=== PATIENT | female | born 1935 | race African-American/Black ===

== ENCOUNTER 2018-08-04 11:06 | Inpatient (IN) | payer OTHER ==
--- NOTE | 2018-08-04 11:44 | PDOC ---
History of Present Illness - General Chief Complaint: G Tube Problem Stated Complaint: FAILURE TO THRIVE Time Seen by Provider: 08/04/18 11:27 History Source: [facility] Exam Limitations: Dementia - History of Present Illness Initial Comments: 08/04/18 11:43 Limited history due to patient's dementia. Pt is an 82yo f with left BKA, CVA with R sided deficits, alzheimer's, DM BIBA from [facility] for G-tube placement. Pt has not been eating food and is here to get G-tube placed. Not taking blood thinners. DNR/DNI PCP: Dina PMH: see hpi PSH: Meds: see med rec Allergies: nkda Past History - Past Medical History Allergies/Adverse Reactions: Allergies Allergy/AdvReac Type Severity Reaction Status Date / Time No Known Allergies Allergy Verified 02/15/15 15:10 Home Medications: Ambulatory Orders Acetaminophen [Tylenol] 650 mg PO QID PRN 10/29/14 Amlodipine Besylate [Norvasc -] 10 mg PO DAILY 10/29/14 Carvedilol 25 mg PO Q12H 10/29/14 Hydralazine HCl 75 mg PO BID 10/29/14 Latanoprost 0.005% Eye Drops [Xalatan 0.005% Eye Drops -] 1 drop OU HS 10/29/14 Timolol 0.5% [Timoptic 0.5%] 1 drop OD DAILY 10/29/14 Insulin Sliding Scale [Novolog Flexpen Sliding Scale -] 0 units SQ ASDIR Brinzolamide [Azopt] 1 drop OP DAILY 08/04/18 Calcium Carbonate/Vitamin D3 [Oyster Shell 500-Vit D3 200 Tb] 1 each PO DAILY Ciclopirox 6.6 ml TP DAILY 08/04/18 Ferrous Sulfate 325 mg PO BID 08/04/18 Lactulose 30 ml PO DAILY PRN 08/04/18 Mirtazapine 7.5 mg PO HS 08/04/18 Ranitidine HCl [Zantac] 150 mg PO DAILY 08/04/18 Sennosides [Senna] 2 tab PO HS 08/04/18 Anemia: No Asthma: Yes Cancer: No Cardiac Disorders: Yes (BLOCKAGES) CVA: No COPD: No CHF: No Dementia: No Diabetes: Yes GI Disorders: No Disorders: No HTN: Yes Hypercholesterolemia: No Liver Disease: No Seizures: No Thyroid Disease: No - Surgical History Abdominal Surgery: No Appendectomy: No Cardiac Surgery: No Cholecystectomy: No Lung Surgery: No Neurologic Surgery: No Orthopedic Surgery: No - Immunization History Immunization Up to Date: Yes - Suicide/Smoking/Psychosocial Hx Smoking Status: No Smoking History: Never smoked Have you smoked in the past 12 months: No Number of Cigarettes Smoked Daily: 0 Hx Alcohol Use: No Drug/Substance Use Hx: No Substance Use Type: None Hx Substance Use Treatment: No Review of Systems - Review of Systems Able to Perform ROS?: No *Physical Exam - Physical Exam General Appearance: Yes: Nourished, Appropriately Dressed. No: Apparent Distress HEENT: positive: EOMI, MURALI (reduced in L eye). negative: Scleral Icterus (R), Scleral Icterus (L) Neck: positive: Trachea midline, Supple. negative: Carotid bruit, Lymphadenopathy (R), Lymphadenopathy (L) Respiratory/Chest: positive: Lungs Clear, Normal Breath Sounds. negative: Crackles, Rales, Rhonchi, Stridor Cardiovascular: positive: Regular Rhythm, S1, S2, Irregular. negative: Edema, JVD, Murmur Vascular Pulses: Carotid (R): 2+, Carotid (L): 2+, Dorsalis-Pedis (R): 1+ Gastrointestinal/Abdominal: positive: Normal Bowel Sounds, Soft. negative: Distended, Guarding, Rebound, Tenderness Musculoskeletal: positive: Other (L BKA. Contracted on R side. ). negative: CVA Tenderness Extremity: positive: Normal Capillary Refill, Pelvis Stable Integumentary: positive: Normal Color, Dry, Warm Neurologic: positive: debt recovery officer II-XII NML intact, Alert, Normal Mood/Affect, Normal Response. negative: Fully Oriented (oriented to self), Motor Strength 5/5 ( strength 4/5 in L arm. R sided deficits from CVA. ) ED Treatment Course - LABORATORY CBC & Chemistry Diagram: 08/04/18 13:20 08/04/18 12:43 Medical Decision Making - Medical Decision Making 08/04/18 18:26 Pt is an 82yo f with left BKA, CVA with R sided deficits, alzheimer's, DM BIBA from [facility] for G-tube placement. Pt has not been eating food and is here to get G-tube placed. Not taking blood thinners. DNR/DNI Will order labs and admit pt. Pt admitted under Dr. Jasmine No doctor available to provide consent from IR. I had to obtain consent and place NG tube. *DC/Admit/Observation/Transfer Diagnosis at time of Disposition: Failure to thrive Qualifiers: Failure to thrive age range: in adult Qualified Code(s): R62.7 - Adult failure to thrive - Discharge Dispostion Condition at time of disposition: Stable Decision to Admit order: Yes - Referrals - Patient Instructions - Post Discharge Activity
[2018-08-04] MEDS ORDERED: ACETAMINOPHEN 650 MG SUPP.RECT PR PRN (13:08)
[2018-08-04] MEDS ORDERED: METOPROLOL TARTRATE 5 MG/5 ML VIAL IVPUSH PRN (13:08)
--- NOTE | 2018-08-04 13:10 | PDOC ---
Attending Attestation - Resident Resident Name: KarlyLisseth - ED Attending Attestation I have performed the following: I have examined & evaluated the patient, The case was reviewed & discussed with the resident, I agree w/resident's findings & plan, Exceptions are as noted - HPI HPI: 08/04/18 13:32 The patient is a 82 year old female, with a past medical history of anemia, PVD , DM, asthma, HLD, GERD, dementia, CVA, chronic ischemic heart disease, who presents to the emergency department from [facility] for failure to thrive. Per correction, the patient has not been taking PO and was sent to hospital for G-tube. No fevers or vomiting noted at [facility]. No abdominal pain, no CP/SOB. Allergies: NKDA Past surgical history: LLE amputation (below the knee). Social history: Nonsmoker. Denies EtOH use and recreational drug use. Primary Care Physician: Dr. Jasmine - Physicial Exam PE: 08/04/18 13:47 "GENERAL: Awake, alert, in no acute distress. HEAD: No signs of trauma EYES: PERRLA, EOMI, sclera anicteric, conjunctiva clear ENT: Auricles normal inspection, hearing grossly normal, nares patent, oropharynx clear without exudates. Moist mucosa NECK: Nontender, no stepoffs, Normal ROM, supple, no lymphadenopathy, JVD, or masses LUNGS: Breath sounds equal, clear to auscultation bilaterally. No wheezes, and no crackles HEART: Regular rate and rhythm, normal S1 and S2, no murmurs, rubs or gallops ABDOMEN: Soft, nontender, normoactive bowel sounds. No guarding, no rebound. No masses EXTREMITIES: Normal range of motion, no edema. No clubbing or cyanosis. No cords, erythema, or tenderness NEUROLOGICAL: Cranial nerves II through XII intact. 5/5 strength and sensation in all extremities SKIN: Warm, Dry, normal turgor, no rashes or lesions noted." - Medical Decision Making 08/04/18 13:47 82 F with failure to thrive and poor PO, sent in for G tube placement. Low suspicion for acute process. Pt otherwise well appearing on exam, stable vitals , no fever. - Labs - Admit <Ou,Sreekanth - Last Filed: 08/04/18 13:04> Attestations - Attestations 08/04/18 14:56 Documentation prepared by Joe Nelson, acting as medical and scientific illustrator for Sreekanth Blake MD. <Joe Nelson - Last Filed: 08/04/18 14:56>
[2018-08-04] MEDS ORDERED: SODIUM CHLORIDE 1,000 ML IV SCH (13:15)
[2018-08-04 13:39] LABS: BASO % 1.4 % (0-2.0); EOS % 2.1 % (0-4.5); HEMATOCRIT 31.7 % (32.4-45.2); HEMOGLOBIN 10.3 GM/dL (10.7-15.3); LYMPH % 41.6 % (8-40); MCHC 32.6 g/dl (32.0-36.0); MEAN CELL VOLUME 82.8 fl (80-96); MEAN PLT VOLUME 9.9 fl (7.5-11.1); MONO % 6.6 % (3.8-10.2); NEUT % 48.3 % (42.8-82.8); PLATELET COUNT 289 K/MM3 (134-434); RBC 3.83 M/mm3 (3.60-5.2); RDW 15.2 % (11.6-15.6); WHITE BLOOD COUNT 5.2 K/mm3 (4.0-10.0)
[2018-08-04 14:00] LABS: INR 1.12 (0.83-1.09); PROTHROMBIN TIME (PATIENT) 13.2 SEC (9.7-13.0)
[2018-08-04 14:12] LABS: ALBUMIN 2.7 g/dl (3.4-5.0); ALK PHOS 84 U/L (45-117); ANION GAP 11 MMOL/L (8-16); BILIRUBIN,TOTAL 0.4 mg/dL (0.2-1); BLOOD UREA NITROGEN 6 mg/dL (7-18); CALCIUM 8.3 mg/dL (8.5-10.1); CHLORIDE 107 mmol/L (98-107); CO2 27 mmol/L (21-32); CREATININE 0.5 mg/dL (0.55-1.3); GLUCOSE,RANDOM 93 mg/dL (74-106); MAGNESIUM 1.5 mg/dL (1.8-2.4); PHOSPHOROUS 2.1 mg/dL (2.5-4.9); POTASSIUM 3.2 mmol/L (3.5-5.1); SGOT/AST 14 U/L (15-37); SGPT/ALT 16 U/L (13-61); SODIUM 145 mmol/L (136-145); TOT PROT 6.2 g/dl (6.4-8.2)
[2018-08-04] MEDS: DEXTROSE 5%-NORMAL SALINE 1,000 ML IV SCH (14:22)
[2018-08-05] MEDS ORDERED: KCL 10 MEQ IVPB 10 MEQ/100 ML INFUS.BAG IVPB SCH (00:15)
[2018-08-05] MEDS: LATANOPROST 0.005% OPHTH SOLN 2.5ML BOTTLE OD SCH (01:37)
[2018-08-05] MEDS: TIMOLOL 0.5% OPHTHALMIC SOL 5 ML BOTTLE OD SCH ×2 (01:37→14:48)
[2018-08-05 08:43] LABS: HEMATOCRIT 33.1 % (32.4-45.2); HEMOGLOBIN 10.6 GM/dL (10.7-15.3); MCH 26.5 pg (25.7-33.7); MCHC 31.9 g/dl (32.0-36.0); MEAN CELL VOLUME 83.1 fl (80-96); MEAN PLT VOLUME 9.9 fl (7.5-11.1); PLATELET COUNT 268 K/MM3 (134-434); RBC 3.98 M/mm3 (3.60-5.2); RDW 15.1 % (11.6-15.6)
[2018-08-05 09:32] LABS: ALBUMIN 2.8 g/dl (3.4-5.0); ALK PHOS 83 U/L (45-117); ANION GAP 10 MMOL/L (8-16); BILIRUBIN,TOTAL 0.4 mg/dL (0.2-1); BLOOD UREA NITROGEN 5 mg/dL (7-18); CALCIUM 8.1 mg/dL (8.5-10.1); CHLORIDE 103 mmol/L (98-107); CO2 27 mmol/L (21-32); CREATININE 0.5 mg/dL (0.55-1.3); GLUCOSE,RANDOM 129 mg/dL (74-106); SGOT/AST 14 U/L (15-37); SGPT/ALT 15 U/L (13-61); SODIUM 140 mmol/L (136-145); TOT PROT 6.3 g/dl (6.4-8.2)
[2018-08-05 09:36] LABS: POTASSIUM 2.9 mmol/L (3.5-5.1)
[2018-08-05] MEDS: GLUCAGON 1 MG KIT IVPUSH ONE ×2 (10:45→12:14)
[2018-08-05] MEDS ORDERED: PT OWN MED DRAWER 7, Y5N ONE ×2 (12:16→23:39)
--- NOTE | 2018-08-05 12:56 | EKG ---
Test Reason : Blood Pressure : / mmHG Vent. Rate : 085 BPM Atrial Rate : 085 BPM P-R Int : 232 ms QRS Dur : 110 ms QT Int : 410 ms P-R-T Axes : -09 118 -38 degrees QTc Int : 487 ms SINUS RHYTHM WITH 1ST DEGREE A-V BLOCK RIGHT BUNDLE BRANCH BLOCK LEFT POSTERIOR FASCICULAR BLOCK BIFASCICULAR BLOCK SEPTAL INFARCT , AGE UNDETERMINED T WAVE ABNORMALITY, CONSIDER INFERIOR ISCHEMIA ABNORMAL ECG Confirmed by MD BOOGIE, TONY ([id number]) on 08/05/2018 12:55:47 PM Referred By: Confirmed By:TONY HYMAN MD
--- NOTE | 2018-08-05 14:35 | HP ---
Admitting History and Physical - Primary Care Physician PCP: Carlos Jasmine - Admission Chief Complaint: GTUBE PLACEMENT FOR FTT History of Present Illness: PATIENT WITH DEMENTIA, DM, HTN, FTT SENT FROM [place] FOR GTUBE PLACEMENT AFTER NUMEROUS ATTEMPTS TO TRY APPETITE STIMULANTS AND CALORIE COUNTS OVER 6 MONTHS. PATIENT DEVELOPING FTT, WEIGHT LOSS NEEDING A FEEDING TUBE. FAMILY AWARE. - Past Medical History [employer] F[employer]ATOR: Yes: CVA, Dementia Cardiovascular: Yes: CAD, HTN, Other Renal/: Yes: Renal Inusuff Heme/Onc: Yes: Anemia Endocrine: Yes: Diabetes Mellitus - Smoking History Smoking history: Never smoked Have you smoked in the past 12 months: No Aproximately how many cigarettes per day: 0 - Alcohol/Substance Use Hx Alcohol Use: No - Social History ADL: Support Services Home Medications - Allergies Allergies/Adverse Reactions: Allergies Allergy/AdvReac Type Severity Reaction Status Date / Time No Known Allergies Allergy Verified 02/15/15 15:10 - Home Medications Home Medications: Ambulatory Orders Acetaminophen [Tylenol] 650 mg PO QID PRN 10/29/14 Amlodipine Besylate [Norvasc -] 10 mg PO DAILY 10/29/14 Carvedilol 25 mg PO Q12H 10/29/14 Hydralazine HCl 75 mg PO BID 10/29/14 Latanoprost 0.005% Eye Drops [Xalatan 0.005% Eye Drops -] 1 drop OU HS 10/29/14 Timolol 0.5% [Timoptic 0.5%] 1 drop OD DAILY 10/29/14 Insulin Sliding Scale [Novolog Vial Sliding Scale -] 0 units SQ ASDIR 01/06/15 Brinzolamide [Azopt] 1 drop OP DAILY 08/04/18 Calcium Carbonate/Vitamin D3 [Oyster Shell 500-Vit D3 200 Tb] 1 each PO DAILY Ciclopirox 6.6 ml TP DAILY 08/04/18 Ferrous Sulfate 325 mg PO BID 08/04/18 Lactulose 30 ml PO DAILY PRN 08/04/18 Mirtazapine 7.5 mg PO HS 08/04/18 Ranitidine HCl [Zantac] 150 mg PO DAILY 08/04/18 Sennosides [Senna] 2 tab PO HS 08/04/18 Review of Systems - Review of Systems Constitutional: reports: No Symptoms Eyes: reports: No Symptoms HENT: reports: No Symptoms Neck: reports: No Symptoms Cardiovascular: reports: No Symptoms Respiratory: reports: No Symptoms Gastrointestinal: reports: No Symptoms Genitourinary: reports: Incontinence Musculoskeletal: reports: Muscle Weakness Integumentary: reports: Other Neurological: reports: Confusion, Pre-Existing Deficit Physical Examination Vital Signs: Vital Signs Temperature 99.8 F H 08/05/18 05:49 Pulse Rate 87 08/05/18 11:02 Respiratory Rate 20 08/05/18 11:02 Blood Pressure 187/98 H 08/05/18 11:02 O2 Sat by Pulse Oximetry (%) 100 08/05/18 11:02 Constitutional: Yes: Other Eyes: Yes: WNL HENT: Yes: WNL Neck: Yes: WNL Cardiovascular: Yes: Regular Rate and Rhythm, Other Respiratory: Yes: On Nasal O2, Other Gastrointestinal: Yes: Soft, Other Renal/: Yes: Incontinence Musculoskeletal: Yes: Muscle Weakness Extremities: Yes: Other Edema: No Peripheral Pulses WNL: Yes Integumentary: Yes: Skin Tear Wound/Incision: Yes: Dressing Dry and Intact Neurological: Yes: Pre-Existing Deficit ...Motor Strength: LLE, RLE Psychiatric: Yes: Other Labs: CBC, BMP 08/05/18 08:15 08/05/18 08:15 Problem List - Problems (1) Failure to thrive Code(s): IRJ3102 - Qualifiers: Failure to thrive age range: in adult Qualified Code(s): R62.7 - Adult failure to thrive (2) Diabetes Code(s): E11.9 - TYPE 2 DIABETES MELLITUS WITHOUT COMPLICATIONS Assessment/Plan GTUBE PLACEMENT WITH IR BGM CHECKS CHECK LABS START FEEDS AND DC TO SNF
--- NOTE | 2018-08-05 14:39 | DS ---
Physical Examination Vital Signs: Vital Signs Temperature 99.8 F H 08/05/18 05:49 Pulse Rate 87 08/05/18 11:02 Respiratory Rate 20 08/05/18 11:02 Blood Pressure 187/98 H 08/05/18 11:02 O2 Sat by Pulse Oximetry (%) 100 08/05/18 11:02 Constitutional: Yes: Mild Distress Eyes: Yes: WNL HENT: Yes: WNL Neck: Yes: WNL Cardiovascular: Yes: WNL Respiratory: Yes: WNL Gastrointestinal: Yes: WNL, Other (GTUBE PLACED) Musculoskeletal: Yes: Muscle Weakness Extremities: Yes: Other Edema: No Peripheral Pulses WNL: Yes Integumentary: Yes: Other Wound/Incision: Yes: Other Neurological: Yes: Pre-Existing Deficit ...Motor Strength: LLE, RLE Psychiatric: Yes: Other Labs: CBC, BMP 08/05/18 08:15 08/05/18 08:15 Discharge Summary Reason For Visit: FAILURE TO THRIVE Current Active Problems Failure to thrive (Acute) Procedures: Principal: GTUBE PLACEMENT Hospital Course: ADMITTED FOR GTUBE PLACEMENT DUE TO MULTIPLE MEDICAL PROBLEMS WITH DYSPHAGIA AND FTT. GTUBE PLACED WILL F/U AT FACILITY SNF Condition: Stable - Instructions Diet, Activity, Other Instructions: START GLUCERNA 200CC/HR FOR 12 HOURS THEN INCREASE BY 10CC/HR EVERY 6 HOURS FOR GOAL OF 50CC/HR 20CC H20 EVERY HOUR CHECK FOR RESIDUAL REPEAT CBC/CMP/MAGNESIUM Referrals: Gopal Arroyo MD [Primary Care Provider] - Disposition: RETIREMENT FACILITY - Home Medications Comprehensive Discharge Medication List: Ambulatory Orders Acetaminophen [Tylenol] 650 mg PO QID PRN 10/29/14 Amlodipine Besylate [Norvasc -] 10 mg PO DAILY 10/29/14 Carvedilol 25 mg PO Q12H 10/29/14 Hydralazine HCl 75 mg PO BID 10/29/14 Latanoprost 0.005% Eye Drops [Xalatan 0.005% Eye Drops -] 1 drop OU HS 10/29/14 Timolol 0.5% [Timoptic 0.5%] 1 drop OD DAILY 10/29/14 Insulin Sliding Scale [Novolog Vial Sliding Scale -] 0 units SQ ASDIR 01/06/15 Brinzolamide [Azopt] 1 drop OP DAILY 08/04/18 Calcium Carbonate/Vitamin D3 [Oyster Shell 500-Vit D3 200 Tb] 1 each PO DAILY Ciclopirox 6.6 ml TP DAILY 08/04/18 Ferrous Sulfate 325 mg PO BID 08/04/18 Lactulose 30 ml PO DAILY PRN 08/04/18 Mirtazapine 7.5 mg PO HS 08/04/18 Ranitidine HCl [Zantac] 150 mg PO DAILY 08/04/18 Sennosides [Senna] 2 tab PO HS 08/04/18
[2018-08-05] MEDS: KCL 10 MEQ IVPB 10 MEQ/100 ML INFUS.BAG IVPB SCH ×3 (14:48→17:18)
[2018-08-05] MEDS: METOPROLOL TARTRATE 5 MG/5 ML VIAL IVPUSH PRN (15:20)
[2018-08-05] MEDS: DEXTROSE 5%-NORMAL SALINE 1,000 ML IV SCH (22:20)
[2018-08-06] MEDS: TIMOLOL 0.5% OPHTHALMIC SOL 5 ML BOTTLE OD SCH ×2 (00:01→12:03)
[2018-08-06] MEDS: LATANOPROST 0.005% OPHTH SOLN 2.5ML BOTTLE OD SCH (00:02)
[2018-08-06] MEDS: METOPROLOL TARTRATE 5 MG/5 ML VIAL IVPUSH PRN ×2 (02:49→07:02)
[2018-08-06] MEDS ORDERED: PT OWN MED DRAWER 7, Y5N ONE (05:44)
[2018-08-06 06:04] VITALS: TEMP 98.8
[2018-08-06 07:12] LABS: ANION GAP 7 MMOL/L (8-16); BLOOD UREA NITROGEN 4 mg/dL (7-18); CALCIUM 7.8 mg/dL (8.5-10.1); CHLORIDE 108 mmol/L (98-107); CO2 29 mmol/L (21-32); CREATININE 0.5 mg/dL (0.55-1.3); GLUCOSE,RANDOM 124 mg/dL (74-106); MAGNESIUM 1.5 mg/dL (1.8-2.4); SODIUM 143 mmol/L (136-145)
[2018-08-06] MEDS ORDERED: MAGNESIUM SULF 50% (8.12 MEQ/2 ML-1 GM VIAL) IVPB ONE (07:44)
[2018-08-06] MEDS: KCL 10 MEQ IVPB 10 MEQ/100 ML INFUS.BAG IVPB SCH ×3 (08:10→12:02)
[2018-08-06 11:43] VITALS: BMI 24.6
[2018-08-06 14:29] VITALS: BP 155/85; PULSE 74
== END 2018-08-06 15:55 | DRG 641 ==
LOC: JER 11:06 → JERBED 13:50 → J6S 23:51
PROVIDERS: ADMIT Family Medicine; ATTEND Family Medicine
PROC: 0DH63UZ Insertion of Feeding Device into Stomach, Percutaneous Approach (ICD-10-PCS; principal; 2018-08-05)
DX: R62.7 Adult failure to thrive (principal); E11.9 Type 2 diabetes mellitus without complications; E78.5 Hyperlipidemia, unspecified; K21.9 Gastro-esophageal reflux disease without esophagitis; F03.90 Unspecified dementia, unspecified severity, without behavioral disturbance, psychotic disturbance, mood disturbance, and anxiety; R13.10 Dysphagia, unspecified; I10 Essential (primary) hypertension; Z89.512 Acquired absence of left leg below knee
CPT/HCPCS: 36415; 49440; 71045-TC-FY; 74018-TC-FY; 76000-TC-FY; 80048; 80053; 82962; 83735; 84100; 84484; 85025; 85027; 85610; 85730; 87081; 87186; 93005; 93010; 99282-25